=== PATIENT | female | born 1995 | race Caucasian/White ===

== ENCOUNTER 2018-05-02 18:09 | Emergency (ER) | payer OTHER ==
--- NOTE | 2018-05-02 19:23 | EDPHY ---
H & P Time Seen by Provider: 05/02/18 18:41 HPI/ROS: CHIEF COMPLAINT: Swelling right arm HISTORY OF PRESENT ILLNESS: 22-year-old female presents to the emergency department with concerns of swelling to her right arm. 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 She last injected in her right forearm yesterday afternoon and states that she missed the vein. She noted some swelling which got much worse last night and she thinks that is actually improving a bit today. She has no associated pain with this. She denies paresthesias in her upper extremities. Denies feelings of weakness in her upper extremities. Denies pain in her right wrist, right elbow or right shoulder. Denies pain in her right axilla. REVIEW OF SYSTEMS: Constitutional: No fever, no chills. Eyes: No double or blurry vision. ENT: No sore throat. Respiratory: No cough, no shortness of breath. Cardiac: No chest pain. Gastrointestinal: No abdominal pain, vomiting or diarrhea. Genitourinary: No dysuria. Musculoskeletal: No neck or back pain. Skin: No rashes. Neurological: No headache. Past Medical/Surgical History: Substance abuse Social History: Single and lives in [place] with her mom Smoking Status: Never smoked Physical Exam: General Appearance: Alert, no distress. Eyes: Pupils equal and round. Extraocular motions are all intact. ENT: Mouth: Mucous membranes moist. Respiratory: No wheezing, rhonchi, or rales, lungs are clear to auscultation. Cardiovascular: Regular rate and rhythm. Gastrointestinal: Abdomen is soft and nontender, no masses, no rebound or guarding, bowel sounds normal. Neurological: Alert and oriented x 3, cranial nerves II through XII grossly intact Skin: Warm and dry, no rashes. Musculoskeletal: Nontender to palpate along the cervical, thoracic or lumbar spine. Neck is supple. Extremities: Obvious swelling noted to the right forearm from the wrist up to the elbow. It is warm to the touch. She has some mild erythema. She has no pain with palpation. No palpable fluctuance or evidence of abscess. There is no lymphangitis. No palpable bony tenderness. Full range of motion of the right upper extremity. She has diffuse areas of ecchymosis noted to bilateral forearms from previous injections. Psychiatric: Patient is oriented X 3, there is no agitation. Constitutional: Initial Vital Signs Temperature (C) 36.6 C 05/02/18 18:11 Heart Rate 126 H 05/02/18 18:11 Respiratory Rate 16 05/02/18 18:11 Blood Pressure 125/84 H 05/02/18 18:11 O2 Sat (%) 98 05/02/18 18:11 O2 Delivery Mode Room Air Allergies/Adverse Reactions: amoxicillin [Amoxicillin] Allergy (Mild, Verified 05/02/18 18:11) Rash Penicillins Allergy (Mild, Verified 05/02/18 18:11) Rash Home Medications: Medication Instructions Recorded Cephalexin [Keflex] 500 mg PO QID #28 cap 05/02/18 Sulfamethox/Tmp 800/160 mg 1 tab PO BID #14 tab 05/02/18 [Bactrim DS] Medical Decision Making - Diagnostics Imaging Results: Imaging Impressions Extremity Venous Study 05/02/18 18:55 Impression: 1. No evidence of deep venous thrombosis. 2. Occlusion of the cephalic vein with subcutaneous edema and pain in the forearm compatible with superficial thrombophlebitis. 3. No evidence of loculated fluid collection to suggest abscess. Dr. Bell was notified of these findings by telephone at 8:05 PM on 05/02/2018. Imaging: Discussed imaging studies w/ rn call center Radiologist ED Course/Re-evaluation: 22-year-old female presents emergency department with swelling to the right forearm. There is no evidence of compartment syndrome. She does have obvious swelling. I expose concerned about possible DVT also concerned about possible abscess. Ultrasound reveals no evidence of DVT or abscess. Clinically she could have an early cellulitis. She will be treated with Keflex and Bactrim. I encouraged warm compresses. There is no evidence of compartment syndrome. The patient has no associated pain with this. I did encourage her to return to the emergency department if she had any change in symptoms or felt worse. Differential Diagnosis: Including but not limited to DVT, cellulitis, compartment syndrome, abscess, necrotizing fasciitis Departure - Departure Disposition: Home, Routine, Self-Care Clinical Impression: Superficial thrombophlebitis , Cellulitis of right forearm Condition: Good Instructions: Cellulitis (ED), Superficial Thrombophlebitis (ED) Additional Instructions: Keflex and Bactrim as directed for 1 week. Warm compresses as discussed. Return to the emergency department if you developed fever, increasing pain or swelling in your forearm, increasing pain, or if you feel worse in any way. Referrals: Velma Ta NP [Primary Care Provider] - As per Instructions Prescriptions: Cephalexin [Keflex] 500 mg PO QID #28 cap Sulfamethox/Tmp 800/160 mg [Bactrim DS] 1 tab PO BID #14 tab
[2018-05-02 20:44] VITALS: BP 119/75
== END 2018-05-02 20:43 | disposition home or self-care (01) ==
DX: I80.8 Phlebitis and thrombophlebitis of other sites (principal); L03.113 Cellulitis of right upper limb